=== PATIENT | male | born 1950 | race Caucasian/White ===

== ENCOUNTER → 2018-08-19 | Outpatient (CLI) | payer OTHER | END | disposition home or self-care (01) | LOC: RAD 07:48 | PROVIDERS: ATTEND Internal Medicine | DX: M51.16 Intervertebral disc disorders with radiculopathy, lumbar region (principal); M48.061 Spinal stenosis, lumbar region without neurogenic claudication | CPT/HCPCS: 72148 ==

== ENCOUNTER 2019-06-08 08:36 | Outpatient (CLI) | payer OTHER | END 2019-06-08 23:59 | disposition home or self-care (01) | LOC: CFH 08:36 → RAD 23:59 | PROVIDERS: ATTEND Nurse Practitioner Primary Care | DX: M51.36 Other intervertebral disc degeneration, lumbar region (principal); M48.061 Spinal stenosis, lumbar region without neurogenic claudication | CPT/HCPCS: 72148 ==

== ENCOUNTER 2020-02-24 08:39 | Outpatient (CLI) | payer OTHER ==
[2020-02-24] MEDS ORDERED: DICL75TA3 PO (09:19)
[2020-02-24] MEDS ORDERED: MAGN400T36 PO (09:19)
[2020-02-24] MEDS ORDERED: HYDR25TA6 PO (09:19)
[2020-02-24] MEDS ORDERED: NAPR220C2 PO (09:19)
[2020-02-24] MEDS ORDERED: TURMERIC CURCUMIN PO (09:19)
[2020-02-24] MEDS ORDERED: ATOR10TA9 PO (09:19)
[2020-02-24] MEDS ORDERED: METF500T17 PO (09:19)
[2020-02-24] MEDS ORDERED: IBUP1TAB PO (09:19)
[2020-02-24] MEDS ORDERED: GUAI400T81 PO (09:19)
[2020-02-24] MEDS ORDERED: IBUP-1222 PO (09:19)
[2020-02-24] MEDS ORDERED: ACET-1600 PO (09:19)
[2020-02-24] MEDS ORDERED: LOSA25TA25 PO (09:19)
[2020-02-24] MEDS ORDERED: MULT-516 PO (09:19)
[2020-02-24] MEDS ORDERED: ACET-458 PO (09:19)
[2020-02-24] MEDS ORDERED: ALBUTEROL INH (09:19)
[2020-02-24] MEDS ORDERED: TERA2CAP3 PO (09:19)
[2020-02-24] MEDS ORDERED: DOXY25TA18 PO (09:19)
[2020-02-24] MEDS ORDERED: TRAM50TA2 PO (09:19)
[2020-02-24] MEDS ORDERED: CHOL10003 PO (09:19)
[2020-02-24] MEDS ORDERED: LYCO10CA PO (09:19)
[2020-02-24] MEDS ORDERED: CYAN2500 PO (09:19)
[2020-02-24] MEDS ORDERED: BUDE10.22 IH (09:26)
[2020-02-24 09:56] LABS: BASOPHILS # (AUTO) 0.04 x10^3/uL (0-0.1); BASOPHILS % (AUTO) 0 % (0-1); EOSINOPHILS # (AUTO) 0.13 x10^3/uL (0-0.4); EOSINOPHILS % (AUTO) 1 % (1-7); LYMPHOCYTES # (AUTO) 1.29 x10^3/uL (1-3.4); LYMPHOCYTES % (AUTO) 14 % (22-44); MD NO; MEAN CORPUSCULAR HEMOGLOBIN 29.8 pg (27.5-34.5); MEAN PLATELET VOLUME 7.4 fL (7.4-10.4); MONOCYTES # (AUTO) 0.51 x10^3/uL (0.2-0.8); MONOCYTES % (AUTO) 5 % (2-9); NEUTROPHILS # (AUTO) 7.39 x10^3/uL (1.8-6.8); NEUTROPHILS % (AUTO) 79 % (42-75); PLATELET COUNT 320 x10^3/uL (130-400); RED CELL DISTRIBUTION WIDTH 13.9 % (9.4-14.8)
[2020-02-24 10:04] LABS: INTERNATIONAL NORMALIZED RATIO 0.89 (0.93-1.1); PROTHROMBIN TIME 9.4 Seconds (9.6-11.5)
[2020-02-24 10:06] LABS: ALANINE AMINOTRANSFERASE 37 U/L (12-78); ALBUMIN 3.5 g/dL (3.4-5.0); ANION GAP 7 mmol/L (5-15); CALCIUM 9.9 mg/dL (8.5-10.1); CHLORIDE 108 mmol/L (98-107)
[2020-02-24 10:08] LABS: ALKALINE PHOSPHATASE 73 U/L (45-117); BILIRUBIN,TOTAL 0.4 mg/dL (0.2-1.0); TOTAL PROTEIN 7.4 g/dL (6.4-8.2)
[2020-03-01] MEDS ORDERED: HYDR-3246 PO (10:28)
[2020-03-01] MEDS ORDERED: ONDA4TAB7 PO (10:28)
[2020-03-01] MEDS ORDERED: CYCL-259 PO (10:30)
== END 2020-02-24 23:59 | disposition home or self-care (01) ==
LOC: STAR 08:39
PROVIDERS: ATTEND Neurological Surgery
DX: Z01.818 Encounter for other preprocedural examination (principal); M48.061 Spinal stenosis, lumbar region without neurogenic claudication; R94.31 Abnormal electrocardiogram [ECG] [EKG]
CPT/HCPCS: 36415; 80053; 83036; 85025; 85610; 85730; 93005